=== PATIENT | female | born 1950 | race Caucasian/White ===

== ENCOUNTER → 2023-06-14 12:45 | Outpatient (CLI) | payer OTHER, SELFPAY ==
--- NOTE | 2023-06-14 | DI.US.S_ITS ---
PROCEDURE: US RENAL COMPLETE INDICATIONS: KIDNEY STONES TECHNIQUE: Real-time scanning was performed of the kidneys and bladder, with image documentation. COMPARISON: [facility], US, US RENAL COMPLETE, 06/21/2021, 11:03. FINDINGS: Kidneys: Kidneys are normal in size. Right kidney measures 9.2 cm long; left kidney measures 9.7 cm long. Right renal cortical thickness is 1.4 cm; left renal cortical thickness is 2.7 cm. Renal cortical echotexture is within normal limits. No hydronephrosis or nephrolithiasis. No suspicious solid mass lesions. Bladder: Pre-void bladder volume is 329 mL. Post-void residual is 16 mL. Pre-void images demonstrate no intraluminal masses or stones. On pre-void images, both ureteral jets are noted with color Doppler interrogation. (Of note, ureteral jets may not be detectable in up to 25% of cases due to insufficient differences in specific gravity between ureteral and bladder urine). Miscellaneous: No free pelvic fluid. IMPRESSION: 1. No kidney stones identified. No hydronephrosis. 2. Minimal postvoid residual. Consider CT KUB or CT IVP. Dictated by: Erickson Mckenzie M.D. on 06/14/2023 at 20:40 Approved by: Erickson Mckenzie M.D. on 06/14/2023 at 20:48
== END ==
LOC: US 12:50
PROVIDERS: PCP Physical Medicine & Rehabilitation; Referring Provider Physical Medicine & Rehabilitation; Visit Provider Physical Medicine & Rehabilitation
DX: Z01.89 Encounter for other specified special examinations (principal); N31.9 Neuromuscular dysfunction of bladder, unspecified; G35 Multiple sclerosis
CPT/HCPCS: 76770